=== PATIENT | female | born 1955 | race African-American/Black ===

== ENCOUNTER 2024-05-16 06:54 | Emergency (ER) | payer MEDICARE ==
[~2024-05-16] VITALS: Ht 152.4 cm; Wt 101.4 kg
[2024-05-16 07:08] VITALS: BP 149/88; PULSE 82; RESP 16; TEMP 97.7; O2SAT 98
[2024-05-16] MEDS ORDERED: TRIMO EACHEYE (08:57)
== END 2024-05-16 09:22 | disposition home or self-care (01) ==
LOC: ER 07:36
DX: H10.89 Other conjunctivitis (principal); Z98.890 Other specified postprocedural states
CPT/HCPCS: 99283

== ENCOUNTER 2024-07-20 12:03 | Inpatient (IN) | payer MEDICARE ==
[~2024-07-20] VITALS: Ht 152.4 cm; Wt 104.3 kg
[~2024-07-20 12:03] MED LIST: TRIMO EACHEYE
[2024-07-20 13:24] LABS: BASOPHILS % 0.5 % (0.0-2.0); EOSINOPHILS % 2.1 % (0.0-5.0); HEMATOCRIT. 45.5 % (36.0-48.0); HEMOGLOBIN. 15.4 g/dL (12.0-16.0); MEAN CORPUSCULAR HEMOGLOBIN 30.8 pg (28.0-32.0); MEAN CORPUSCULAR HGB CONC 33.8 g/dL (31.0-37.0); MEAN CORPUSCULAR VOLUME 91.1 fL (81.0-99.0); MEAN PLATELET VOLUME 9.7 fl (7.4-10.4); NEUTROPHILS % 77.4 % (40.0-76.0); PLATELET 212 x1000/uL (130-400); RED CELL DISTRIBUTION WIDTH 13.7 % (11.6-14.6)
[2024-07-20] MEDS: MORPHINE SULFATE 4 MG/ML INJ (FOR IV/IM USE) IV ONE (13:27)
[2024-07-20 13:31] LABS: CHLORIDE 110 mEq/L (98-107); POTASSIUM 4.1 mEq/L (3.5-5.1); SODIUM 139 mEq/L (136-145)
[2024-07-20 13:32] LABS: CARBON DIOXIDE 26 mEq/L (21-32)
[2024-07-20 13:33] LABS: CALCIUM 9.2 mg/dL (8.7-10.4)
[2024-07-20 13:37] LABS: CREATININE 0.7 mg/dL (0.6-1.0); GLUCOSE 94 mg/dL (70-105); UREA NITROGEN BLOOD 9 mg/dL (9-23)
[2024-07-20 13:39] LABS: ALANINE AMINOTRANSFERASE 35 IU/L (10-49); ASPARTATE AMINOTRANSFERASE 26 IU/L (<34)
[2024-07-20 13:40] LABS: BILIRUBIN TOTAL 0.5 mg/dL (0.1-1.0); PROTEIN TOTAL 6.5 g/dL (6.0-8.3)
[2024-07-20 15:59] LABS: CREATINE KINASE 88 IU/L (34-145)
[2024-07-20] MEDS ORDERED: CLONIDINE 0.1MG TABLET PO PRN (16:45)
[2024-07-20] MEDS ORDERED: IPRATROPIUM/ALBUTEROL 0.5-3(2.5)MG/3ML NEB HHN PRN (16:45)
[2024-07-20] MEDS ORDERED: ONDANSETRON HCL 4MG/2ML INJ IV PRN (16:45)
[2024-07-20 17:23] LABS: PHOSPHORUS 2.5 mg/dL (2.5-4.9)
[2024-07-20] MEDS ORDERED: NALOXONE HCL 0.4MG/ML VIAL IV PRN (18:00)
[2024-07-20 18:12] VITALS: BP 136/74; PULSE 82; RESP 20; TEMP 36.3624
[2024-07-20] MEDS: MORPHINE SULFATE 2 MG/ML INJ (NOT FOR IM USE) IV PRN (19:02)
[2024-07-20 20:00] VITALS: BP 132/54; PULSE 82; RESP 19; TEMP 36.3918; O2SAT 100
[2024-07-20] MEDS: ACETAMINOPHEN 325MG TABLET PO PRN (22:02)
[2024-07-21] VITALS: BP 138/63; PULSE 75; RESP 19; TEMP 36.6696; O2SAT 96
[2024-07-21 00:44] LABS: CREATINE KINASE 63 IU/L (34-145)
[2024-07-21 00:46] LABS: CREATINE KINASE MB FRACTION 0.6 ng/mL (0.5-3.6)
[2024-07-21 00:47] LABS: TROPONIN I HIGH SENSITIVITY < 4 ng/L (3.0-34)
[2024-07-21 04:00] VITALS: BP 143/74; PULSE 72; RESP 19; TEMP 36.3918; O2SAT 100
[2024-07-21] MEDS: MELATONIN 3MG TABLET PO SCH (04:57)
[2024-07-21] MEDS: SODIUM CHLORIDE 0.45% 1,000 ML IV SCH (05:00)
[2024-07-21 07:32] LABS: CARBON DIOXIDE 29 mEq/L (21-32); CHLORIDE 109 mEq/L (98-107); POTASSIUM 4.7 mEq/L (3.5-5.1); SODIUM 141 mEq/L (136-145)
[2024-07-21 07:33] LABS: CALCIUM 8.9 mg/dL (8.7-10.4)
[2024-07-21 07:36] LABS: CREATININE 0.7 mg/dL (0.6-1.0)
[2024-07-21 07:37] LABS: CREATINE KINASE MB FRACTION < 0.5 ng/mL (0.5-3.6)
[2024-07-21 07:38] LABS: CHOLESTEROL 144 mg/dL (<200); GLUCOSE 98 mg/dL (70-105); TRIGLYCERIDE 87 mg/dL (0-150); UREA NITROGEN BLOOD 12 mg/dL (9-23)
[2024-07-21 07:39] LABS: LDL CHOLESTEROL 91 mg/dL (5-100)
[2024-07-21 07:40] LABS: HDL CHOLESTEROL 44 mg/dL (>65)
[2024-07-21 07:41] LABS: CREATINE KINASE 53 IU/L (34-145); T4 FREE 1.16 ng/dL (0.89-1.76); TROPONIN I HIGH SENSITIVITY < 4 ng/L (3.0-34)
[2024-07-21 07:42] LABS: THYROID STIMULATING HORMONE 2.82 uIU/mL (0.55-4.78)
[2024-07-21 07:57] LABS: BASOPHILS % 0.4 % (0.0-2.0); EOSINOPHILS % 2.5 % (0.0-5.0); HEMATOCRIT. 46.1 % (36.0-48.0); HEMOGLOBIN. 15.1 g/dL (12.0-16.0); LYMPHOCYTES % 16.5 % (20.0-50.0); MEAN CORPUSCULAR HEMOGLOBIN 29.9 pg (28.0-32.0); MEAN CORPUSCULAR HGB CONC 32.8 g/dL (31.0-37.0); MEAN CORPUSCULAR VOLUME 91.3 fL (81.0-99.0); MEAN PLATELET VOLUME 10.3 fl (7.4-10.4); MONOCYTES % 5.9 % (2.0-8.0); NEUTROPHILS % 74.7 % (40.0-76.0); PLATELET 203 x1000/uL (130-400); RED BLOOD CELL COUNT 5.05 mill/uL (4.2-5.4); RED CELL DISTRIBUTION WIDTH 13.8 % (11.6-14.6); WHITE BLOOD COUNT 7.5 x1000/uL (4.5-11.0)
[2024-07-21 08:00] VITALS: BP 116/44; PULSE 73; RESP 19; TEMP 36.72516; O2SAT 97
[2024-07-21 12:00] VITALS: BP 107/76; PULSE 67; RESP 18; TEMP 36.61404; O2SAT 99
[2024-07-21] MEDS: KETOROLAC 15MG/ML VIAL IV PRN (12:53)
[2024-07-21 13:20] LABS: CLARITY URINE CLEAR (CLEAR); COLOR URINE YELLOW (YELLOW); GLUCOSE URINE NEGATIVE (NEGATIVE); KETONES URINE NEGATIVE (NEGATIVE); LEUKOCYTE ESTERASE URINE NEGATIVE (NEGATIVE); NITRITE URINE NEGATIVE (NEGATIVE); OCCULT BLOOD URINE NEGATIVE (NEGATIVE); PH URINE 5.5 (4.5-8.0); PROTEIN URINE NEGATIVE (NEGATIVE); SPECIFIC GRAVITY URINE 1.021 (1.005-1.030); UROBILINOGEN URINE 0.2 E.U./dL (0.2-1.0)
[2024-07-21 13:36] LABS: *AMPHETAMINES SCREEN URINE NEGATIVE (NEGATIVE); *BARBITURATES SCREEN URINE NEGATIVE (NEGATIVE); *BENZODIAZEPINES SCREEN URINE NEGATIVE (NEGATIVE); *COCAINE SCREEN URINE NEGATIVE (NEGATIVE); CANNABINOID URINE SCREEN NEGATIVE (NEGATIVE); ECSTASY MDMA SCREEN URINE NEGATIVE (NEGATIVE); METHADONE URINE SCREEN NEGATIVE (NEGATIVE); OPIATES URINE SCREEN PRESUMPTIVE POSITIVE (NEGATIVE); PHENCYCLIDINE URINE SCREEN NEGATIVE (NEGATIVE)
[2024-07-21 16:00] VITALS: BP 127/79; PULSE 75; RESP 18; TEMP 36.50292; O2SAT 98
[2024-07-21 20:00] VITALS: BP 128/83; PULSE 83; RESP 19; TEMP 36.50292; O2SAT 95
[2024-07-22] VITALS: BP 132/76; PULSE 90; RESP 19; TEMP 36.61404; O2SAT 96
[2024-07-22 04:00] VITALS: BP 102/68; PULSE 75; RESP 19; TEMP 35.89176; O2SAT 98
[2024-07-22 08:00] VITALS: BP 112/72; PULSE 77; RESP 18; TEMP 36.00288; O2SAT 97
[2024-07-22] MEDS: DOCUSATE SODIUM 100MG CAPSULE PO PRN (09:20)
[2024-07-22] MEDS: ALENDRONATE SODIUM 35MG TABLET PO SCH (10:00)
[2024-07-22 12:00] VITALS: BP 142/73; PULSE 77; RESP 19; TEMP 38.39196; O2SAT 97
[2024-07-22 16:00] VITALS: BP 125/70; PULSE 82; RESP 20; TEMP 35.72508; O2SAT 95
[2024-07-22 20:00] VITALS: BP 144/89; PULSE 95; RESP 19; TEMP 36.55848; O2SAT 98
[2024-07-22] MEDS: MELATONIN 3MG TABLET PO SCH (20:54)
[2024-07-23] VITALS: BP 141/92; PULSE 92; RESP 19; TEMP 37.11408; O2SAT 97
[2024-07-23 04:00] VITALS: BP 138/88; PULSE 89; RESP 19; TEMP 37.00296; O2SAT 98
[2024-07-23 08:00] VITALS: BP 104/82; PULSE 88; RESP 18; TEMP 36.50292; O2SAT 97
[2024-07-23 09:21] VITALS: BP 130/78; PULSE 80; TEMP 97.9; O2SAT 99
[2024-07-23 12:00] VITALS: BP 130/81; PULSE 85; RESP 18; TEMP 36.44736; O2SAT 98
[2024-07-23] MEDS ORDERED: OXYC-662 PO ×2 (13:08→14:46)
[2024-07-23] MEDS ORDERED: TOPUD PO (13:08)
[2024-07-23] MEDS ORDERED: ALEN70TA79 MT (13:08)
== END 2024-07-23 15:30 | disposition home or self-care (01) | DRG 552 ==
LOC: ER 12:15 → 6EST 15:15 → EDBEDREQTM 15:36 → EDBEDREQ 15:36
PROVIDERS: ADMIT Internal Medicine; ATTEND Internal Medicine
DX: M47.816 Spondylosis without myelopathy or radiculopathy, lumbar region (principal); M17.11 Unilateral primary osteoarthritis, right knee; M25.551 Pain in right hip; M25.78 Osteophyte, vertebrae; M43.10 Spondylolisthesis, site unspecified; M48.07 Spinal stenosis, lumbosacral region; M67.879 Other specified disorders of synovium and tendon, unspecified ankle and foot; M81.0 Age-related osteoporosis without current pathological fracture; Z79.83 Long term (current) use of bisphosphonates; Z86.12 Personal history of poliomyelitis
CPT/HCPCS: 36415; 71045; 72131; 73522; 73552; 73560; 73610; 80048; 80053; 80061; 80305; 81003; 82550; 82553; 83605; 83735; 84100; 84439; 84443; 84481; 84484; 85025; 93005; 93923; 93970; 97161; 97166; 99285; J1885; J2270